=== PATIENT | male | born 1955 | race Caucasian/White ===

== ENCOUNTER 2017-12-07 08:10 | Observation (INO) | payer BC, OTHER ==
[2017-12-07] VITALS (8 sets, daily range): BP systolic 119–148; BP diastolic 62–82; PULSE 49–71; RESP 16–18; TEMP 97.7–98.6; O2SAT 96–100
[~2017-12-07] VITALS: Ht 170.2 cm; Wt 85.3 kg
[~2017-12-07 08:10] MED LIST: Z.0.NO CURRENT MEDS
--- NOTE | 2017-12-07 08:36 | PD ---
HPI Chief Complaint: Chest Pain Time Seen by Provider: 08:36 Travel History International Travel<30 days: No Contact w/Intl Traveler<30days: No Traveled to known affect area: No History of Present Illness HPI 62-year-old male came to the emergency room with history of chest pain and shortness of breath for past 1 month. Patient says that the pain comes and goes. He is here today because of shortness of breath is worse. Pain is in the center of the chest and is like a dull ache. Currently does not have any pain. No aggravating or relieving factors identified. No radiation of the pain. Vital signs were stable. Patient is a smoker of half a pack a day. He drinks a few beers throughout the week. No history of coronary artery disease in the past or in the family. Patient has never had a stress test in the past. He saw his primary care physician 9 months back. He was told that his cholesterol level was slightly high but he is not on any medications. [facility] Past Medical History Narrative Medical List of his past medical, surgical, social and family history is reviewed from the nursing note. GERD: Yes Kidney Stones: Yes (YEARLY SINCE 2003 (3 YEARS).) Immunizations Current: No Influenza Vaccination: No Past Surgical History Oral Surgery: Yes (BOTTOM TEETH PULLED OUT DUE TO INFECTION 2017) Tonsillectomy: Yes Social History Alcohol Use: Yes (2 BEERS DAILY) Tobacco Use: Yes (1/2 PPD) Substance Use: No (denies) Allergies-Medications (Allergen,Severity, Reaction): Coded Allergies: No Known Allergies (Verified Allergy, Mild, 07/10/07) Comments No known drug allergies. Reported Meds & Prescriptions Reported Meds & Active Scripts Active Narrative Medication List of his home medications reviewed from the nursing note. Review of Systems Except as stated in HPI: all other systems reviewed are Neg Cardiovascular: Positive: Chest Pain or Discomfort Respiratory: Positive: Shortness of Breath Physical Exam Narrative GENERAL: Awake, alert, anxious, no obvious distress SKIN: Focused skin assessment warm/dry. HEAD: Atraumatic. Normocephalic. EYES: Pupils equal and round. No scleral icterus. No injection or drainage. ENT: No nasal bleeding or discharge. Mucous membranes pink and moist. NECK: Trachea midline. No JVD. CARDIOVASCULAR: Regular rate and rhythm. No murmur appreciated. RESPIRATORY: No accessory muscle use. Clear to auscultation. Breath sounds equal bilaterally. GASTROINTESTINAL: Abdomen soft, non-tender, nondistended. Hepatic and splenic margins not palpable. MUSCULOSKELETAL: No obvious deformities. No clubbing. No cyanosis. No edema. NEUROLOGICAL: Awake and alert. No obvious cranial nerve deficits. Motor grossly within normal limits. Normal speech. PSYCHIATRIC: Appropriate mood and affect; insight and judgment normal. Data Data Last Documented VS Vital Signs Date Time Temp Pulse Resp B/P (MAP) Pulse Ox O2 Delivery O2 Flow Rate FiO2 12/07/17 09:16 51 18 148/75 (99) 96 Room Air 138/82 (100) 12/07/17 08:28 97.9 Orders Orders Electrocardiogram (12/07/17 08:49) Basic Metabolic Panel (Bmp) (12/07/17 08:49) Complete Blood Count With Diff (12/07/17 08:49) Magnesium (Mg) (12/07/17 08:49) Prothrombin Time / Inr (Pt) (12/07/17 08:49) Troponin I (12/07/17 08:49) Ecg Monitoring (12/07/17 08:49) Bilateral Bp Monitoring (12/07/17 08:49) Iv Access Insert/Monitor (12/07/17 08:49) Oximetry (12/07/17 08:49) Oxygen Administration (12/07/17 08:49) Aspirin Chew (Aspirin Chew) (12/07/17 09:00) Sodium Chloride 0.9% Flush (Ns Flush) (12/07/17 09:00) Chest, Pa & Lat (12/07/17 08:49) Admit Order (Ed Use Only) (12/07/17 09:50) Labs Laboratory Tests Test 12/07/17 08:56 White Blood Count 5.4 TH/MM3 Red Blood Count 5.05 MIL/MM3 Hemoglobin 16.7 GM/DL Hematocrit 48.7 % Mean Corpuscular Volume 96.4 FL Mean Corpuscular Hemoglobin 33.1 PG Mean Corpuscular Hemoglobin Concent 34.3 % Red Cell Distribution Width 14.0 % Platelet Count 131 TH/MM3 Mean Platelet Volume 9.0 FL Neutrophils (%) (Auto) 64.4 % Lymphocytes (%) (Auto) 24.9 % Monocytes (%) (Auto) 7.5 % Eosinophils (%) (Auto) 2.4 % Basophils (%) (Auto) 0.8 % Neutrophils # (Auto) 3.5 TH/MM3 Lymphocytes # (Auto) 1.4 TH/MM3 Monocytes # (Auto) 0.4 TH/MM3 Eosinophils # (Auto) 0.1 TH/MM3 Basophils # (Auto) 0.0 TH/MM3 CBC Comment DIFF FINAL Differential Comment Prothrombin Time 9.9 SEC Prothromb Time International Ratio 1.0 RATIO Blood Urea Nitrogen 9 MG/DL Creatinine 1.09 MG/DL Random Glucose 94 MG/DL Calcium Level 9.1 MG/DL Magnesium Level 2.1 MG/DL Sodium Level 138 MEQ/L Potassium Level 3.8 MEQ/L Chloride Level 105 MEQ/L Carbon Dioxide Level 28.1 MEQ/L Anion Gap 5 MEQ/L Estimat Glomerular Filtration Rate 69 ML/MIN Troponin I LESS THAN 0.02 NG/ML MDM Medical Decision Making Medical Screen Exam Complete: Yes Emergency Medical Condition: Yes Medical Record Reviewed: Yes Interpretation(s) Twelve-lead EKG was reviewed by me. Normal sinus rhythm, normal axis, nonspecific ST-T wave changes. Heart rate of 66 bpm. Differential Diagnosis ACS, non-STEMI, nonspecific chest pain Narrative Course 9:07 AM awaiting for the blood test results. Patient was given 2 baby aspirin' s to chew. 9:51 AM blood test results of back and within acceptable limits. Patient will be admitted to the chest pain center to be ruled out. Procedures EKG Prior to Arrival: No Diagnosis Primary Impression: Chest pain Qualified Codes: R07.9 - Chest pain, unspecified Admitting Information Admitting Physician Requests: Observation Scripts Aspirin (Tgt Aspirin) 81 Mg Chw 81 MG CHEW DAILY for Blood Clot Prevention, #30 EA Prov: Fariba Persaud MD 12/08/17 Bijal Mcadams MD Dec 07, 2017 08:36
[2017-12-07] MEDS ORDERED: ASPIRIN 81 MG CHEW TAB PO ONE (09:00)
[2017-12-07] MEDS ORDERED: SODIUM CHLORIDE 0.9% FLUSH 10 ML FLUSH IVF PRN (09:00)
[2017-12-07 09:20] LABS: HEMATOCRIT 48.7 % (39.0-51.0); HEMOGLOBIN 16.7 GM/DL (13.0-17.0); MEAN CELL VOLUME 96.4 FL (80.0-100.0); MEAN CORPUSCULAR HEMOGLOBIN 33.1 PG (27.0-34.0); MEAN CORPUSCULAR HGB CONC 34.3 % (32.0-36.0); PLATELET COUNT 131 TH/MM3 (150-450); RED BLOOD COUNT 5.05 MIL/MM3 (4.50-5.90); WHITE BLOOD COUNT 5.4 TH/MM3 (4.0-11.0)
[2017-12-07 09:21] LABS: AUTOMATED NEUTROPHIL # 3.5 TH/MM3 (1.8-7.7); BASOPHIL % 0.8 % (0.0-2.0); EOSINOPHIL # 0.1 TH/MM3 (0-0.4); EOSINOPHIL % 2.4 % (0.0-4.0); LYMPH % 24.9 % (9.0-44.0); LYMPHOCYTE # 1.4 TH/MM3 (1.0-4.8); MONO % 7.5 % (0.0-8.0); MONOCYTE # 0.4 TH/MM3 (0-0.9); NEUT % 64.4 % (16.0-70.0)
[2017-12-07 09:31] LABS: PROTHROMBIN TIME - PATIENT 9.9 SEC (9.8-11.6)
--- NOTE | 2017-12-07 09:38 | RADRPT ---
EXAM DATE/TIME: 12/07/2017 09:11 [facility] COMPARISON: No previous studies available for comparison. INDICATIONS : Chest pain for 28 days, short of breath MEDICAL HISTORY : smoker SURGICAL HISTORY : shoulder, knees ENCOUNTER: Initial ACUITY: 1 month PAIN SCORE: 8/10 LOCATION: Bilateral chest FINDINGS: PA and lateral views of the chest demonstrate a normal-sized cardiac silhouette. There is no effusion , consolidation, or pneumothorax. The bones and soft tissues demonstrate no acute abnormality. CONCLUSION: No acute cardiopulmonary abnormality is identified. Adam Kay MD on December 07, 2017 at 9:36 Board Certified Radiologist. This report was verified electronically.
[2017-12-07 09:39] LABS: BICARBONATE 28.1 MEQ/L (21.0-32.0); BLOOD UREA NITROGEN 9 MG/DL (7-18); CALCIUM 9.1 MG/DL (8.5-10.1); CHLORIDE 105 MEQ/L (98-107); CREATININE 1.09 MG/DL (0.60-1.30); GLOMERULAR FILTRATION RATE 69 ML/MIN (>89); GLUCOSE,RANDOM 94 MG/DL (74-106); MAGNESIUM 2.1 MG/DL (1.5-2.5); SODIUM (NA) 138 MEQ/L (136-145)
[2017-12-07 09:43] LABS: TROPONIN I LESS THAN 0.02 NG/ML (0.02-0.05)
[2017-12-07] MEDS ORDERED: IOHEXOL 350 MG/ML 50 ML BTL (for Cath Lab) OTHER ONE (09:52)
[2017-12-07] MEDS ORDERED: ACETAMINOPHEN 500 MG CPLT PO PRN (10:00)
[2017-12-07] MEDS ORDERED: NITROGLYCERIN 0.4 MG SL 25 TABS/BTL SL PRN (10:00)
[2017-12-07] MEDS ORDERED: ONDANSETRON HCL 4 MG/2 ML VIAL IV PUSH PRN (10:00)
--- NOTE | 2017-12-07 10:10 | HHI.HP ---
[facility] Primary Care Physician Dr. Still Chief Complaint Chest pain and dyspnea History of Present Illness 62-year-old male long-standing history of smoking presents to emergency room for further evaluation of chest pain and dyspnea. Onset 30 days. Reports month long symptoms including sore throat, productive cough white sputum, poor appetite, and lungs feel "tight." Denies fever, chills, or awakening from sleep dyspneic. Endorses dyspnea progressively becoming worse, with accompanying intermittent chest pain. Stating "I feel like I have an infection in my lungs." Location of chest discomfort substernal. Characterized as "ache. " Severity moderate. No radiation. Duration 30-45 seconds. No associated symptoms of nausea, vomiting, diaphoresis. No known precipitating or relieving factors. Also reporting 33 pound weight loss past 30 days. Denies notifying primary care provider of weight loss, chest pain, recent illness, or dyspnea. Review of Systems General: No fatigue,weakness, fever, or chills. Decrease change in appetite, nasal congestion, and sore throat x 30 days. HEENT: Current nasal congestion and sore throat x 30 days, no drainage.No YANG, no vision changes, no dysphasia CV: As stated above. No current chest discomfort. RESP: Dyspnea not necessary always with exertional. Current productive cough, white sputum. No current dyspnea. No wheeze or hemoptysis. No known history of COPD or asthma. GI: No nausea, vomiting, or bowel changes. Poor appetite x 30 days, reports unintentional weight loss of #33 pounds past 30 days due to lack of appetite. : No dysuria, urgency, frequency EXT: No lower leg edema, no paraesthesias MS: No discomfort or change in ROM NEURO: No difficulty with balance, LOC, motor/sensory deficits PSYCH: No anxiety, depression SKIN: No rashes, no concerning lesions Past Family Social History Allergies: Coded Allergies: No Known Allergies (Verified Allergy, Mild, 07/10/07) Past Medical History None Past Surgical History Tonsillectomy, lower teeth extracted (2017) Reported Medications Reported Meds & Active Scripts Active None Active Ordered Medications Current Medications Medications (Trade) Dose Ordered Sig/Antonio Route Start Time Stop Time Status Last Admin (NS Flush) 2 ml UNSCH PRN IVF 12/07/17 09:00 (Tylenol) 500 mg Q4H PRN PO 12/07/17 10:00 (Zofran Inj) 4 mg Q6H PRN IV PUSH 12/07/17 10:00 (Nitrostat Sl) 0.4 mg Q5M PRN SL 12/07/17 10:00 (Aspirin) 325 mg DAILY PO 12/08/17 09:00 Family History Noncontributory for early onset cardiovascular disease. Social History No known hypertension, hyperlipidemia, or diabetes. Recently told cholesterol slightly elevated, lifestyle modifications at this time. Lifelong smoker, currently one half pack daily. Endorses "few beers, every other day." Denies any illegal drug use. Past Cardiac testing None Physical Exam Vital Signs Vital Signs Date Time Temp Pulse Resp B/P (MAP) Pulse Ox O2 Delivery O2 Flow Rate FiO2 12/07/17 09:16 51 18 148/75 (99) 96 Room Air 138/82 (100) 12/07/17 08:52 18 98 Room Air 12/07/17 08:52 98 Room Air 12/07/17 08:30 71 18 98 Room Air 12/07/17 08:28 97.9 71 18 141/79 (99) 98 Room Air 12/07/17 08:19 98.0 71 16 141/79 (99) 100 Physical Exam GENERAL: Alert WN, WD, NAD, pleasant, male who appears older than stated age, does not appear ill or underweight. HEAD: NC, AT CV: RRR, without murmur, rub, gallop, no JVD, S1-S2 no S3-S4. RESP: Clear lungs throughout bilateral, no crackles, wheeze, rhonchi, symmetrical chest rise, nonlabored, able to speak in full sentences ABD: Soft, NT, ND, no masses, positive bowel tones EXT: Pulses +24, no dependent edema MS: Normal tone 4 extremities, nontender, no obvious deformities, full range of motion NEURO: CN II through CN XII grossly intact, motor strength 5/5 PSYCH: A+O 3, pleasant affect, appropriate speech, mood, insight and judgment SKIN: Normal turgor, normal texture Laboratory Laboratory Tests Test 12/07/17 08:56 White Blood Count 5.4 Red Blood Count 5.05 Hemoglobin 16.7 Hematocrit 48.7 Mean Corpuscular Volume 96.4 Mean Corpuscular Hemoglobin 33.1 Mean Corpuscular Hemoglobin Concent 34.3 Red Cell Distribution Width 14.0 Platelet Count 131 Mean Platelet Volume 9.0 Neutrophils (%) (Auto) 64.4 Lymphocytes (%) (Auto) 24.9 Monocytes (%) (Auto) 7.5 Eosinophils (%) (Auto) 2.4 Basophils (%) (Auto) 0.8 Neutrophils # (Auto) 3.5 Lymphocytes # (Auto) 1.4 Monocytes # (Auto) 0.4 Eosinophils # (Auto) 0.1 Basophils # (Auto) 0.0 CBC Comment DIFF FINAL Differential Comment Prothrombin Time 9.9 Prothromb Time International Ratio 1.0 Blood Urea Nitrogen 9 Creatinine 1.09 Random Glucose 94 Calcium Level 9.1 Magnesium Level 2.1 Sodium Level 138 Potassium Level 3.8 Chloride Level 105 Carbon Dioxide Level 28.1 Anion Gap 5 Estimat Glomerular Filtration Rate 69 Troponin I LESS THAN 0.02 Result Diagram: 12/07/17 0856 12/07/17 0856 Imaging Chest x-ray interpreted by radiologist as No acute cardiopulmonary process identified. Course EKG Normal sinus rhythm, normal axis, no ST or T-segment changes Caprini VTE Risk Assessment Caprini VTE Risk Assessment: No/Low Risk (score <= 1) Caprini Risk Assessment Model Point Value = 1 Point Value = 2 Point Value = 3 Point Value = 5 Age 41-60 Minor surgery BMI > 25 kg/m2 Swollen legs Varicose veins or History of unexplained or recurrent spontaneous Oral contraceptives or hormone replacement Sepsis (< 1 month) Serious lung disease, including pneumonia (< 1 month) Abnormal pulmonary function Acute myocardial infarction Congestive heart failure (< 1 month) History of inflammatory bowel disease Medical patient at bed rest Age 61-74 Arthroscopic surgery Major open surgery (> 45 min) Laparoscopic surgery (> 45 min) Malignancy Confined to bed (> 72 hours) Immobilizing plaster cast Central venous access Age >= 75 History of VTE Family history of VTE Factor V Leiden Prothrombin [id number] Lupus anticoagulant Anticardiolipin antibodies Elevated serum homocysteine Heparin-induced thrombocytopenia Other congenital or acquired thrombophilia Stroke (< 1 month) Elective arthroplasty Hip, pelvis, or leg fracture Acute spinal cord injury (< 1 month) Prophylaxis Regimen Total Risk Factor Score Risk Level Prophylaxis Regimen 0-1 Low Early ambulation 2 Moderate Order ONE of the following: *Sequential Compression Device (SCD) *Heparin 5000 units SQ BID 3-4 Higher Order ONE of the following medications: *Heparin 5000 units SQ TID *Enoxaparin/Lovenox 40 mg SQ daily (WT < 150 kg, CrCl > 30 mL/min) *Enoxaparin/Lovenox 30 mg SQ daily (WT < 150 kg, CrCl > 10-29 mL/min) *Enoxaparin/Lovenox 30 mg SQ BID (WT < 150 kg, CrCl > 30 mL/min) AND/OR *Sequential Compression Device (SCD) 5 or more Highest Order ONE of the following medications: *Heparin 5000 units SQ TID (Preferred with Epidurals) *Enoxaparin/Lovenox 40 mg SQ daily (WT < 150 kg, CrCl > 30 mL/min) *Enoxaparin/Lovenox 30 mg SQ daily (WT < 150 kg, CrCl > 10-29 mL/min) *Enoxaparin/Lovenox 30 mg SQ BID (WT < 150 kg, CrCl > 30 mL/min) AND *Sequential Compression Device (SCD) Assessment and Plan Assessment and Plan #1 Atypical chest pain-admitted chest pain center. Begin ruling out ACS with 3 sets of EKGs and cardiac enzymes. Seen and evaluated by Dr. Chaparro Andujar. Proceed with chemical stress test after CT of chest. If unremarkable, plans to discharge home with follow-up with PCP. #2 Tobacco use-strongly encouraged and stressed the importance of tobacco cessation. Instructed to quit smoking. #3 Dyspnea-no acute findings on exam or chest xray. Obtain CT of chest due to reported 30 pound weight loss and long-standing history of smoking. Strongly encouraged him to quit smoking and to follow up with his PCP regarding weight lost. Verbalized understanding. Socorro Mcclure Dec 07, 2017 10:10
[2017-12-07] MEDS ORDERED: IOHEXOL 350 MG/ML 10 ML VIAL (for RAD DIAG) IVCONTRAST ONE (10:44)
--- NOTE | 2017-12-07 11:17 | RADRPT ---
EXAM DATE/TIME: 12/07/2017 10:39 [facility] COMPARISON: CHEST PA & LAT, December 07, 2017, 9:11. INDICATIONS : Chest pain, shortness of breath. IV CONTRAST: 74 cc Omnipaque 350 (iohexol) IV RADIATION DOSE: 9.90 CTDIvol (mGy) MEDICAL HISTORY : Gastroesophageal reflux disease. SURGICAL HISTORY : Tonsillectomy. ENCOUNTER: Initial ACUITY: 2 days PAIN SCALE: 5/10 LOCATION: Bilateral chest TECHNIQUE: Volumetric scanning of the chest was performed using a pulmonary embolism protocol MIP images were re constructed. Using automated exposure control and adjustment of the mA and/or kV according to patien t size, radiation dose was kept as low as reasonably achievable to obtain optimal diagnostic quality images. DICOM format image data is available electronically for review and comparison. Follow-up recommendations for detected pulmonary nodules are based at a minimum on nodule size and pa tient risk factors according to Fleischner Society Guidelines. FINDINGS: PULMONARY ARTERIES: No filling defects are seen in the pulmonary arteries through the segmental level. LUNGS: There is no consolidation or pneumothorax . No concerning pulmonary nodule is visualized. There is m ild dependent atelectasis. PLEURAE: There is no pleural thickening or pleural effusion. MEDIASTINUM: The heart and great vessels demonstrate no acute finding. However, the ascending aorta is mildly enla rged measuring 4.1 cm in diameter. Descending thoracic aorta measures 3 cm. There is mild atheroscler otic disease of the aorta. No lymphadenopathy is visualized. MUSCULOSKELETAL: There are mild degenerative changes of the thoracic spine. MISCELLANEOUS: The visualized upper abdominal organs demonstrate no acute abnormality. CONCLUSION: 1. No PE is identified. Additionally, no acute finding is identified to explain the chest pain and sh ortness of breath. 2. Mild aneurysmal ascending aorta measuring 4.1 cm. Adam Kay MD on December 07, 2017 at 11:12 Board Certified Radiologist. This report was verified electronically.
[2017-12-07] MEDS ORDERED: REGADENOSON INJ 0.4 MG/5 ML SYR ONE (12:38)
--- NOTE | 2017-12-07 14:37 | RADRPT ---
EXAM DATE/TIME: 12/07/2017 12:27 [facility] COMPARISON: No previous studies available for comparison. INDICATIONS : Chest pain and dyspnea for 1 month. Angina. DOSE: 26.4 mCi Tc99m Myoview at stress. 8.3 mCi Tc99m Myoview at rest. 0.4 mg Lexiscan STRESS SYMPTOMS: Shortness of breath. EJECTION FRACTION: 69% MEDICAL HISTORY : Smoker. SURGICAL HISTORY : Tonsillectomy. ENCOUNTER: Sequela ACUITY: 1 month PAIN SCALE: 0/10 LOCATION: Substernal chest TECHNIQUE: The patient underwent pharmacologic stress with infusion of prescribed dose. Continuous ECG tracing was monitored during stress. Gated SPECT imaging was performed after stress and conventional SPECT i maging was performed at rest. The examination was performed on a SPECT/CT scanner, both attenuation and non-corrected datasets were reviewed. FINDINGS: DISTRIBUTION: The maximum perfused segment at stress is in the anterolateral wall. PERFUSION STUDY: The pattern of perfusion at stress shows areas of 20% redistribution in the region of the septal and anteroseptal matthews. GATED STUDY: There is intact wall motion and thickening without hypokinetic or dyskinetic segments. CONCLUSION: 1. Significant but patchy redistribution in the region of the septal wall. Findings could be indicati ve of RCA disease. 2. Excellent wall motion throughout with an estimated ejection fraction of 69%. RISK CATEGORY: Intermediate (1-3% Annual Mortality Rate) Yariel Bradley MD on December 07, 2017 at 14:32 Board Certified Radiologist. This report was verified electronically.
[2017-12-07 15:30] LABS: TROPONIN I LESS THAN 0.02 NG/ML (0.02-0.05)
[2017-12-07] MEDS ORDERED: HEPARIN-NS/PF FLUSH BAG 2,000 ML IV FLUSH ONE (16:35)
[2017-12-07] MEDS ORDERED: MIDAZOLAM HCL 2 MG/2 ML VIAL ONE (16:38)
[2017-12-07] MEDS ORDERED: VERAPAMIL HCL 5 MG/2 ML VIAL ONE (16:38)
[2017-12-07] MEDS ORDERED: NITROGLYCERIN INJ 5 ML ONE (16:38)
[2017-12-07] MEDS ORDERED: HEPARIN SODIUM - IV 10,000 UNITS/10 ML VIAL ONE (16:38)
--- NOTE | 2017-12-07 16:40 | TR ---
Date Performed: 12/07/2017 Time Performed: 12:45:22 DOCTOR: Chaparro Andujar DRUG LIST: CLINICAL HISTORY: ANGINA REASON FOR TEST: Angina REASON FOR ENDING: OBSERVATION: CONCLUSION: COMMENTS: Lexiscan stress test was performed under standard four minute protocol. Radionuclide was injected one minute prior to ending the test. No electrocardiographic abormalities were present t o suggest ischemia. Nuclear imaging and interpretation are pending.
[2017-12-07] MEDS ORDERED: SODIUM CHLOR 0.9% 1000 ML INJ 1,000 ML IV SCH (17:16)
--- NOTE | 2017-12-07 17:18 | CATHPROC ---
[employer] HIS Report Study Information Study Number Admission Scheduled Start Study Start [id number] Dec 07 2017 9:51AM 12/07/2017 Dec 07 2017 4:36PM [facility] Service Cardiac Catheterization Admit Source Facility Department Emergency department [facility] - Analytical Data [employer]er Physician and Clinical Staff Initial MD More, Eros Barrel Polisher Inside Mihai Saul,LELO Other Hipolito RN, Haroon Bolañoser Aneesh Light,RT(R) Scrub Tamara Gutierres,OUTSOLE LEVELER TECH2 Procedures Performed Procedure Location (Site) Vessel Name Coronary Angiograms LCA Left Coronary L Heart Cath Equipment Time Lathe Set Up Person Description Size Mfg Part Number Used/Scraped TRANSDUCER, TRUWAVE [id number] 16:43 MANCIA SARAH * Used W/STOCKCOCK *[id number] [id number] *[id number] [id number] *[id number] 16:43 [employer] PACK, CCL CUSTOM * Used *[id number] 16:43 [employer] SUPPORT, ARTERIAL ADULT 59010 *[id number] Used BAND, RADIAL COMPRESSION TR [id number] 17:09 [employer] MEDICAL 29CM Used LARGE 29 *[id number] 16:43 VOSS WIRE, EXCHANGE 260CM 3MMJ 260CM Used *[id number] 16:43 NAMIC MANIFOLD, 4 PORT * Used *[id number] 16:43 [employer] OMNIPAQUE, 350 MG, 150ML 150ML [id number] Used [id number] 16:43 [employer] BLANKET,WARM AIR CCL * Used *[id number] SHEATH, FR6 TRANSRADIAL RM*[id number] 16:43 [employer] MEDICAL FR 6 Used SLENDER 10CM *[id number] History: Current Medications Medication Dosage/Unit Route Frequency Last Date/Time Taken ASA History: Allergies Allergy Reaction No Known Allergies History: Risk Factors Family History of Hypertension Dyslipidemia Previous [place] Previous Heart Failure Premature CAD Yes Yes No No No Prior Valve Prior PCI Prior CABG Surgery No No No Cerebrovascular Peripheral Artery Chronic Lung On Dialysis Diabetes Disease Disease Disease No No No No No History: Risk Factors Selection Items Current Smoker History: Stress Tests Stress or Imaging Studies Performed Yes Standard Exercise Stress Test No Stress Echo No Stress Test SPECT Stress Test SPECT Result Stress Test SPECT Ischemia Risk/Extent Yes Positive Intermediate Stress Test CMR No Cardiac CTA Coronary Calcium Score No No History: Other Disease Selection Items HTN History: Other Current Smoker Method Packs a Day Years Used Pack Years Yes Cigarettes 1 45 45 Labs Hgb (g/dl) Hct (%) RBC (MIL/MM3) WBC (l/cumm) Platelets (thousands) 11.60-17.00 35.00-51.00 4.00-5.90 4.00-11.00 150.00-450.00 16.7 48.7 5 5.4 131 Glucose (mg/dl) BUN (mg/dl) Creatinine (mg/dl) BUN:Creatinine (1:x) 74.00-106.00 7.00-18.00 0.50-1.30 10.00-20.00 94 9 1.0 9 Na (meq/l) K (meq/l) Cl (meq/l) CO2 (mmol/L) Ca (mg/dl) 136.00-145.00 3.50-5.10 98.00-107.00 21.00-32.00 8.50-10.10 138 3.8 105 28.1 9.1 PT (sec) INR (PTT:PT) 9.80-11.60 0.90-1.10 9.9 1 Troponin I (ng/ml) CPK (u/l) CPK-MB (ng/ML) 0.02-0.05 26.00-308.00 0.50-3.60 0.02 112 1.0 Medication Medication Total Dose (Bolus/Oral) Medication Total Dosage/Unit 1% XYLOCAINE 5 mL FENTANYL 25 mcg RADIAL COCKTAIL 5 mL (Bolus) VERSED 0.5 mg Medications (Bolus/Oral) Medication Time Given Dosage/Unit Administered By Reason 1% XYLOCAINE 12/07/2017 4:55:28 PM 5 mL Eros More 5 mL 1% XYLOCAINE given in lab by Eros More in Right Radial via Subcutaneous. VERSED 12/07/2017 4:56:19 PM 0.5 mg Mihai Saul 0.5 mg VERSED given in lab by Mihai Saul RN in Right Antecubital via Peripheral IV. FENTANYL 12/07/2017 4:56:27 PM 25 mcg Mihai Saul 25 mcg FENTANYL given in lab by Mihai Saul RN in Right Antecubital via Peripheral IV. Ntg 200mcg Verapamil 2.5mg Heparin RADIAL COCKTAIL 12/07/2017 4:59:02 PM 5 mL (Bolus) Eros More 2000U 5 mL (Bolus) RADIAL COCKTAIL given in lab by Eros More via Radial. Using [Solution Name]. O rdered by Eros More. Reason: Ntg 200mcg Verapamil 2.5mg Heparin 3600U. Medication (Drip) Medication Time Given Dosage/Unit Concentration/Unit Diluent (ml) Solutio n IV Solutions 12/07/2017 4:36:31 PM 0 mL (IV) 500 NaCl .9 IV Solutions given in lab by Mihai Saul, RN in Right Antecubital via Peripheral IV. Pump/Drip Flow = 30 ml/hr using NaCl .9. Initial Case Assessment Cardiovascular HR Rhythm NIBP Chest Pain 51 sb 172/79 0 Edema Present Skin color Skin None Normal Warm Dry Circulatory - Right Pulses Dorsalis Pedis Femoral Radial 2 2 2 Scale (0,1,2,3,4,d) Scale (0,1,2,3,4,d) Circulatory - Lower Extremities Color Lower Right Color Lower Left Normal Normal Neurological State Oriented to time-place- Alert Moves all extremities person Respiration - General Respiration Rate SpO2 (%) (B/min) 8 99 Final Case Assessment Cardiovascular HR Rhythm NIBP Chest Pain 48 Sinus 155/73 0 Edema Present Skin color Skin None Normal Warm Dry Circulatory - Right Pulses Dorsalis Pedis Femoral Radial 2 2 2 Scale (0,1,2,3,4,d) Scale (0,1,2,3,4,d) Neurological State Oriented to time-place- Alert Moves all extremities person Respiration - General Respiration Rate SpO2 (%) O2 (lpm) (B/min) 8 97 0 Chronological Log Time Study Chronological Log 16:30:01 Patient arrived via Bed. 16:30:04 Patient Name, D.O.B, / Armband Verified By R.N. 16:36:07 Consent signed by the physician and the patient and verified by the [employer] staff. 16:36:07 Pre-op and post- op instructions given; patient acknowledges understanding of instructions. 16:36:08 Verbal Stimulation=2 Physical Stimulation=2 Airway=2 Respiration=2 TOTAL=8. (0=absent, 1=li mited, 2=present) 16:36:10 Presedation assessment performed by Analytical Data Miner RN. 16:36:12 Allens test performed on the right radial and ulnar artery. 16:36:20 Patient has been NPO for More than 6Hrs. 16:36:21 Skin Breakdown none per pt 16:36:23 Patient Warmer Placed on the Table. 16:36:25 Kandi Prominences Protected 16:36:31 A # 20 IV was noted in the Antecubital (right). Grade = 0 IV Solutions given in lab by Mihai Saul RN in Right Antecubital via Peripheral IV. Pump/Dri p Flow = 30 ml/hr using 16:36:31 NaCl .9. 16:36:32 History and physical on the chart or being dictated. Assessment: Initial Case, HR=51 BPM, Rhythm=sb, MJFO=309/79 mmhg, Chest Pain=0, Edema=None, Col or=Normal, Skin = Warm, Dry Right Pulses: Armani Ped=2, Femoral=2, Radial=2 16:36:33 Lower Right Extremities: Color=Normal Lower Left Extremities: Color=Normal Neurological: State=Alert, Ox3, DACOSTA Respiration: Resp=8 B/min, SpO2=99 % Vitals capture started with the following parameters, Patient=Adult, Interval=5 min, Initial Pr aasfse=560 mmHg, 16:41:31 Deflation Rate=5 mmHg, Cuff placed on Left Arm 16:41:56 Right Radial and groin(s) prepped with 2% chlorhexidine, and draped after a 3 min. waiting time. 16:43:00 HR=47 bpm, RKWY=779/79 mmhg, SpO2=98.0 %, Resp=21 B/min, Pain=0, Pérez=10, Weiss=2 16:45:57 Pressure channel 1 zeroed. 16:47:14 HR=58 bpm, FDOK=942/78 mmhg, SpO2=96.0 %, Resp=21 B/min, Pain=0, Pérez=10, Weiss=2 16:50:01 MD arrived. 16:52:11 HR=52 bpm, MNXJ=619/77 mmhg, SpO2=96.0 %, Resp=24 B/min, Pain=0, Pérez=10, Weiss=2 16:53:02 Reference ECG taken Time Out. Correct patient, correct procedure, correct physician, power injector not loaded with contrast with surgical 16:55:13 team present. Time Out Concurred by and individual staff in procedure. 16:55:21 Case Start 16:55:28 5 mL 1% XYLOCAINE given in lab by Eros More in Right Radial via Subcutaneous. 16:56:19 0.5 mg VERSED given in lab by Mihai Saul, RN in Right Antecubital via Peripheral IV. 16:56:27 25 mcg FENTANYL given in lab by Mihai Saul RN in Right Antecubital via Peripheral IV. 16:57:51 HR=53 bpm, UHVJ=848/77 mmhg, SpO2=98.0 %, Resp=14 B/min, Pain=0, Pérez=10, Weiss=2 16:58:40 Access site was Radial Artery. A SHEATH, FR6 TRANSRADIAL SLENDER 10CM FR 6 was advanced into the Radial (right) using the Perc utaneous 16:58:47 technique. 5 mL (Bolus) RADIAL COCKTAIL given in lab by Eros More via Radial. Using [Solution Na me]. Ordered by 16:59:02 Eros More. Reason: Ntg 200mcg Verapamil 2.5mg Heparin 3600U. A JR 4.0 INFINITI CATHETER FR 5 was advanced over a wire. OMNIPAQUE, 350 MG, 150ML 150ML was ed for 16:59:58 injections. Recorded Pressure: LV, HR=60, Condition=Condition 1 17:01:11 (Left Ventricle) LV 127/3/10 Recorded Pressure: LV, Ao, HR=59, Condition=Condition 1 17:01:24 (Left Ventricle) LV 106/0/6, (Aorta) Ao 120/62/85 Recorded Pressure: LV, Ao, HR=56, Condition=Condition 1 17:01:28 (Left Ventricle) LV ?/?/?, (Aorta) Ao 119/59/83 Recorded Pressure: Ao, HR=57, Condition=Condition 1 17:01:36 (Aorta) Ao 119/54/83 17:02:11 HR=62 bpm, HENG=810/68 mmhg, SpO2=92.0 %, Resp=15 B/min, Pain=0, Pérez=10, Weiss=2 A JL 3.5 INFINITI CATHETER FR 5 was advanced over a wire. OMNIPAQUE, 350 MG, 150ML 150ML was u sed for 17:03:24 injections. 17:04:59 The LCA was injected and visualized at various angles. OMNIPAQUE, 350 MG, 150ML 150ML use d. 17:06:42 Catheter was removed 17:07:03 Case End 17:07:51 HR=52 bpm, MRFN=125/73 mmhg, SpO2=92.0 %, Resp=7 B/min, Pain=0, Pérez=10, Weiss=2 Assessment: Final Case, HR=48 BPM, Rhythm=Sinus, MFZQ=105/73 mmhg, Chest Pain=0, Edema=None, Color=Normal, Skin = Warm, Dry 17:09:14 Right Pulses: Armani Ped=2, Femoral=2, Radial=2 Neurological: State=Alert, Ox3, DACOSTA Respiration: Resp=8 B/min, SpO2=97 %, O2=0 lpm Radial Compression Device Used. 13 mLs of air placed in BAND, RADIAL COMPRESSION TR LARGE 29 2 9CM. Affected 17:12:31 hand ~O2 SATURATION~ % O2 saturation. 17:12:48 HR=51 bpm, KAHG=293/72 mmhg, SpO2=95.0 %, Resp=12 B/min, Pain=0, Pérez=10, Weiss=2 17:12:54 No case complications noted. 17:12:55 Cine recording checked. 17:13:00 Vitals capture stopped. 17:13:02 Bedside Report will be given. 17:13:30 A Left Heart Cath was performed. 17:17:25 Patient moved to [facility] End Study - Contrast Media Used In Study Contrast Total Opened (mL) Total Used (mL) Total Wasted (mL) Omnipaque 150 25 125 End Study - Maximum Contrast Load Max Contrast Load (mL) 450.0 End Study - Radiation Exposure Fluoro Time (minutes) 1.9 End Study - Patient Disposition Complications Transferred To Interventional Outcome No Telemetry Bed No attempt made
[2017-12-07] MEDS ORDERED: MISC INFORMATION XX ONE (17:30)
[2017-12-08] VITALS: BP 152/81; PULSE 57; RESP 16; TEMP 98.1; O2SAT 97
--- NOTE | 2017-12-08 01:41 | MA ---
cc: Eros More DO 12/07/2017 PROCEDURE: Left heart catheterization, coronary angiogram, moderate sedation 15 minutes. PREPROCEDURE DIAGNOSES: Chest pain, abnormal stress test. POSTPROCEDURE DIAGNOSIS: Mild coronary artery disease. MEDICATIONS: Versed 0.5 mg, Fentanyl 25 mcg, heparin 3600 units, ____ 3.5 mg, nitroglycerin 200 mcg. CONTRAST USED: 25 mL. FLUOROSCOPY: 1.9 minutes. MODERATE SEDATION: 15 minutes. ESTIMATED BLOOD LOSS: 10 mL. PROCEDURAL SUMMARY: Maureen Grant is a pleasant 62-year-old male who presented to [facility] on 12/07/2017 due to chest pain and shortness of breath. He underwent stress testing and as this was found to be abnormal he was recommended cardiac catheterization. Risks, benefits and alternatives were explained to him and he consented as such. He was brought to the lab and prepped in the usual sterile fashion. Right radial artery was accessed using a modified Seldinger technique and placing a #5/6 Greenlandic Slender sheath. This was easily aspirated and flushed. A JR4 was advanced over a J wire to the ascending aorta and across the aortic valve for measurement of left ventricular pressure. This was pulled back across the aortic valve showing no significant gradient of aortic stenosis. JR4 was used for selective angiography of the right coronary artery system. This was pulled back across the aortic valve showing no significant ____ selective angiography of the right coronary artery system. This was exchanged out for a JL3.5 which was used for selective angiography of the left coronary artery system. JL3.5 was removed over a J wire. A radial band was placed over the arteriotomy site for hemostasis. The patient left the cath lab technologist cardiovascularly stable. FINDINGS: LEFT MAIN: Normal size vessel with no significant disease. It bifurcates into an LAD and circumflex. LEFT ANTERIOR DESCENDING: Normal size vessel but distally becomes overall small. It gives off one major diagonal which is overall larger than the LAD. It does have mild tortuosity but no significant disease. LEFT CIRCUMFLEX: Normal size vessel with on significant disease. It gives off 2 obtuse marginals with no significant disease. RIGHT CORONARY ARTERY: Normal size vessel with mild luminal irregularities. Distally it supplies a PDA and multiple PLVs with no significant disease. LEFT VENTRICULAR END DIASTOLIC PRESSURE: 6. IMPRESSIONS: 1. Atypical chest pain. 2. Abnormal stress test. 3. Shortness of breath. 4. Tobacco abuse. 5. Weight loss. RECOMMENDATIONS: 1. Mr. Grant presented with atypical chest pain and shortness of breath. On cardiac catheterization he was found to have mild coronary artery disease that most recommended continued medical management. 2. We will check a 2D echocardiogram to look at his overall left ventricular function, cardiac structure and possible valvopathies. 3. As he received contrast earlier as well as now (total 100 mL) we will start him on light fluids and check his creatinine again in the morning. 4. Overall, further needs workup for his weight loss, either inpatient or outpatient at the discretion of the hospital team. Thank you for allowing me to see Maureen Grant. If there are any questions, please do not hesitate to call. Eros More DO VGP/rt , 05:33 PM , 01:39 AM
[2017-12-08 04:00] VITALS: BP 120/61; PULSE 61; RESP 16; TEMP 98.2; O2SAT 98
[2017-12-08 04:05] VITALS: PULSE 53
[2017-12-08 05:28] LABS: BICARBONATE 27.7 MEQ/L (21.0-32.0); CALCIUM 8.6 MG/DL (8.5-10.1); CREATININE 0.8 MG/DL (0.60-1.30)
[2017-12-08 05:30] LABS: AUTOMATED NEUTROPHIL # 3.1 TH/MM3 (1.8-7.7); BASOPHIL % 0.8 % (0.0-2.0); EOSINOPHIL # 0.1 TH/MM3 (0-0.4); EOSINOPHIL % 1.8 % (0.0-4.0); HEMATOCRIT 45.7 % (39.0-51.0); HEMOGLOBIN 15.4 GM/DL (13.0-17.0); LYMPH % 33.2 % (9.0-44.0); LYMPHOCYTE # 1.8 TH/MM3 (1.0-4.8); MEAN CELL VOLUME 95.9 FL (80.0-100.0); MEAN CORPUSCULAR HEMOGLOBIN 32.3 PG (27.0-34.0); MEAN CORPUSCULAR HGB CONC 33.7 % (32.0-36.0); MEAN PLATELET VOLUME 9.1 FL (7.0-11.0); MONO % 7.7 % (0.0-8.0); MONOCYTE # 0.4 TH/MM3 (0-0.9); NEUT % 56.5 % (16.0-70.0); PLATELET COUNT 113 TH/MM3 (150-450); RED BLOOD COUNT 4.77 MIL/MM3 (4.50-5.90); RED CELL DISTRIBUTION WIDTH 13.8 % (11.6-17.2); WHITE BLOOD COUNT 5.4 TH/MM3 (4.0-11.0)
[2017-12-08 08:00] VITALS: BP 153/72; PULSE 45; RESP 20; TEMP 97.6; O2SAT 98
[2017-12-08] MEDS ORDERED: ASPIRIN 325 MG TAB PO SCH (09:00)
[2017-12-08] MEDS ORDERED: ASPIRIN 81 MG CHEW TAB CHEW SCH (09:00)
[2017-12-08] MEDS ORDERED: ASPI81 CHEW (09:11)
--- NOTE | 2017-12-08 09:11 | HHI.DS ---
Discharge Summary Admission Date Dec 07, 2017 at 09:51 Discharge Date: Dec 08, 2017 Admitting Diagnosis chest pain, rule out ACS (1) Chest pain ICD Code: R07.9 - Chest pain, unspecified Status: Acute Procedures 12/07/17 Left heart catheterization, coronary angiogram by Dr Long cardiology Brief History - From Admission 62-year-old male long-standing history of smoking presents to emergency room for further evaluation of chest pain and dyspnea. Onset 30 days. Reports month long symptoms including sore throat, productive cough white sputum, poor appetite, and lungs feel "tight." Denies fever, chills, or awakening from sleep dyspneic. Endorses dyspnea progressively becoming worse, with accompanying intermittent chest pain. Stating "I feel like I have an infection in my lungs." Location of chest discomfort substernal. Characterized as "ache. " Severity moderate. No radiation. Duration 30-45 seconds. No associated symptoms of nausea, vomiting, diaphoresis. No known precipitating or relieving factors. Also reporting 33 pound weight loss past 30 days. Denies notifying primary care provider of weight loss, chest pain, recent illness, or dyspnea. CBC/BMP: 12/08/17 0408 12/08/17 0408 Significant Findings Laboratory Tests Test 12/07/17 08:56 12/07/17 14:38 12/08/17 04:08 Platelet Count 131 TH/MM3 (150-450) 113 TH/MM3 (150-450) Estimat Glomerular Filtration Rate 69 ML/MIN (>89) Troponin I LESS THAN 0.02 NG/ML LESS THAN 0.02 NG/ML Imaging Last Impressions Chest X-Ray 12/07/17 0849 Signed Impressions: Service Date/Time: Thursday, December 07, 2017 09:11 - CONCLUSION: No acute cardiopulmonary abnormality is identified. Adam Kay MD Myocardial Perfusion Scan Nuc Med 12/07/17 0000 Signed Impressions: Service Date/Time: Thursday, December 07, 2017 12:27 - CONCLUSION: 1. Significant but patchy redistribution in the region of the septal wall. Findings could be indicative of RCA disease. 2. Excellent wall motion throughout with an estimated ejection fraction of 69%%. RISK CATEGORY: Intermediate (1-3%% Annual Mortality Rate) Yariel Bradley MD CT Angiography 12/07/17 0000 Signed Impressions: Service Date/Time: Thursday, December 07, 2017 10:39 - CONCLUSION: 1. No PE is identified. Additionally, no acute finding is identified to explain the chest pain and shortness of breath. 2. Mild aneurysmal ascending aorta measuring 4.1 cm. Adam Kay MD PE at Discharge GENERAL: Alert WN, WD, NAD, pleasant, male who appears older than stated age, in nad. CV: RRR, without murmur, rub, gallop, no JVD, S1-S2 no S3-S4. RESP: Clear lungs throughout bilateral, no crackles, wheeze, rhonchi, symmetrical chest rise, nonlabored, able to speak in full sentences ABD: Soft, NT, ND, no masses, positive bowel tones EXT: Pulses +24, no dependent edema MS: Normal tone 4 extremities, nontender, no obvious deformities, full range of motion NEURO: CN II through CN XII grossly intact, motor strength 5/5 PSYCH: A+O 3, pleasant affect, appropriate speech, mood, insight and judgment SKIN: Normal turgor, normal texture Pt update on day of discharge Patient feels much better. No chest pain overnight no shortness of breath, no nausea or vomiting. He is saturating well on room air. Feels comfortable to go home. Echo with normal ejection fraction. Hospital Course Atypical chest pain-admitted chest pain center. Begin ruling out ACS with 3 sets of EKGs and cardiac enzymes. Seen and evaluated by Dr. Chaparro Andujar. Proceed with chemical stress test after CT of chest. If unremarkable, plans to discharge home with follow-up with PCP. 12/07/17 s/p Left heart catheterization, coronary angiogram by Dr Long cardiology with Mild coronary artery disease. Recommends medical management. 2D ECHO with normal ejection fraction Tobacco use-counselled of tobacco cessation. Dyspnea-no acute findings on exam or chest xray. Obtain CT of chest due to reported 30 pound weight loss and long-standing history of smoking. Strongly encouraged him to quit smoking and to follow up with his PCP regarding weight lost. Verbalized understanding. Cleared by cardiology for discharge. Improved DC home in stable condition to follow up as OP with PCP and consultants Pt Condition on Discharge: Stable Discharge Disposition: Discharge Home Discharge Time: > 30 minutes Discharge Instructions DIET: Follow Instructions for: Heart Healthy Diet Activities you can perform: Regular-No Restrictions Follow up Referrals: Cardiology - 2 Weeks Cardiology PCP Follow-up - 2-3 Days PCP Follow-up New Medications: Aspirin (Tgt Aspirin) 81 Mg Chw 81 MG CHEW DAILY for Blood Clot Prevention, #30 EA Fariba Persaud MD Dec 08, 2017 09:11
--- NOTE | 2017-12-08 10:01 | MB ---
cc: Eros More DO DATE OF CONSULT: 12/07/2017 REASON FOR CONSULTATION: Chest pain, abnormal stress test. HISTORY OF PRESENT ILLNESS: Maureen Grant is a pleasant 62-year-old male who presented to [facility] Emergency Room on due to chest pain and shortness of breath. The patient states that he has noticed chest tightness, with an achy type feeling off and on over the past month. He has also been somewhat shortness of breath. Along with this, he has also had a sore throat, with a product cough and white sputum. Overall, he has had some tightness in his lungs when breathing. He denies fevers or chills. He has also had a 33 pound weight loss over the past 30 days, which he attributes to losing his recently and not eating as well, as well as having his teeth removed. PAST MEDICAL HISTORY: Tobacco abuse, otherwise denies. PAST SURGICAL HISTORY: 1. Tonsillectomy. 2. Teeth extraction. ALLERGIES: NO KNOWN DRUG ALLERGIES. MEDICATIONS: Denies. FAMILY HISTORY: Denies premature coronary artery disease or sudden cardiac within the family. SOCIAL HISTORY: The patient is a lifelong smoker, currently smoking 1/2 to 3/4 packs daily. He drinks a few beers every other day. Denies illicit drug abuse. REVIEW OF SYSTEMS: Fourteen systems were reviewed, including osteopathic. Pertinent positives and negatives above. Otherwise, negative. PHYSICAL EXAMINATION: VITAL SIGNS: Temperature 97.7, heart rate 53, blood pressure 119/62, respirations 18, pulse oximetry 97% on room air. GENERAL: The patient appears well, in no acute distress, alert, awake and oriented x 3. HEENT: Extraocular muscles intact. Mucous membranes moist. NECK: Supple. No JVD at 45 degrees. No carotid bruits heard bilaterally. Carotid upstroke is brisk in nature. CARDIOVASCULAR: Regular rate and rhythm. Positive first and second heart sounds, with no murmurs, gallops or rubs. PULMONARY: Lungs are clear to auscultation bilaterally. No wheezes, rales or rhonchi. ABDOMEN: Nontender, nondistended, no organomegaly noted. EXTREMITIES: Show no clubbing, cyanosis or edema. Femoral and distal pulses intact bilaterally. NEUROLOGIC: No focal deficits. SKIN: Warm, dry and intact. OSTEOPATHIC: No kyphosis, scoliosis, lordosis or paraspinal tender points. LABORATORY WORK: Hemoglobin 16.7, hematocrit 48.7, platelets 131, potassium 3.8, BUN 9, creatinine 1.09. Troponin negative x 2. ELECTROCARDIOGRAM (12/07/2017 AT 0832): Sinus rhythm. No acute ST, T wave changes. IMPRESSION: 1. Atypical chest pain. 2. Shortness of breath associated with exertion, but also noted with coughing. 3. Abnormal stress test. 4. Recent extensive weight loss. 5. Depression. 6. Tobacco abuse. RECOMMENDATIONS: 1. Mr. Grant appears to have presented with atypical chest pain and shortness of breath and underwent stress testing, which showed possible ischemic territories. Because of this, he will be recommended cardiac catheterization. 2. Risks, benefits and alternatives have been explained to him and consents as such. 3. He received 74 milliliters of contrast during a CT angio to rule out possible pulmonary embolus. I will keep this in mind during his cardiac catheterization to not give him an extensive amount of contrast. 4. We will plan on checking a 2D echocardiogram to look at his overall left ventricular function, cardiac structure and possible valvulopathies. 5. His weight loss may be due to his loss of his , depression and also removal of his teeth and having poor oral intake. I did discuss with him drug use, which he states he has none. I also discussed with him if he has any high risk sexual behaviors and concern for HIV, which he states he does not. I will leave further workup to the hospitalist, as well as the primary care physician. 6. It may be reasonable for him to undergo further cancer screenings in the outpatient setting. Any high risk sexual activity and he states he has none and no concern for HIV. Lastly, my concern would be for cancer. I will let the hospitalist and primary care physician do further workup for his weight loss. 7. Further recommendations will be made based on the hospital course. 8. I spoke to him for greater than 3 minutes about tobacco cessation. Thank you for allowing me to see Maureen Grant. If there are any questions, please do not hesitate to call. Eros More, DO LOBATO/ISAAC , 05:28 PM , 02:09 AM
--- NOTE | 2017-12-08 11:54 | ECHRPT ---
Indication: CP, SOB CONCLUSIONS The left ventricular systolic function is normal with an estimated ejection fraction in the range of 55-60%. The right ventricle is mildly dilated. Trace mitral valve regurgitation. Trace aortic valve regurgitation. There is trace tricuspid valve regurgitation. BP: 120 / 61 HR: Rhythm: Sinus MEASUREMENTS (Male / Female) Normal Values Technical Quality:Fair 2D ECHO LV Diastolic Diameter PLAX 4.6 cm 4.2 - 5.9 / 3.9 - 5.3 cm LV Systolic Diameter PLAX 3.4 cm IVS Diastolic Thickness 1.0 cm 0.6 - 1.0 / 0.6 - 0.9 cm LVPW Diastolic Thickness 1.0 cm 0.6 - 1.0 / 0.6 - 0.9 cm LV Relative Wall Thickness 0.4 RV Internal Dim ED PLAX 2.8 cm LVOT Diameter 1.9 cm Aortic Root Diameter 2.6 cm LA Systolic Diameter LX 3.0 cm 3.0 - 4.0 / 2.7 - 3.8 cm M-MODE AV Cusp Separation MM 2.0 cm DOPPLER AV Peak Velocity 120.0 cm/s AV Peak Gradient 5.8 mmHg AV Mean Gradient 3.0 mmHg AV Velocity Time Integral 25.8 cm LVOT Peak Velocity 67.7 cm/s LVOT Peak Gradient 1.8 mmHg LVOT Velocity Time Integral 16.9 cm AV Area Cont Eq vti 1.9 cm AV Area Cont Eq pk 1.6 cm Mitral E Point Velocity 75.5 cm/s Mitral A Point Velocity 66.6 cm/s Mitral E to A Ratio 1.1 LV E' Lateral Velocity 10.9 cm/s Mitral E to LV E' Lateral Ratio 6.9 LV E' Septal Velocity 7.6 cm/s Mitral E to LV E' Septal Ratio 9.9 TR Peak Velocity 265.0 cm/s TR Peak Gradient 28.1 mmHg Right Atrial Pressure 10.0 mmHg Pulmonary Artery Systolic Pressu 38.1 mmHg Right Ventricular Systolic Press 38.1 mmHg PV Peak Velocity 54.1 cm/s PV Peak Gradient 1.2 mmHg FINDINGS LEFT VENTRICLE Normal left ventricular size. Wall thickness is normal. The left ventricular systolic function is normal with an estimated ejection fraction in the range of 55-60%. No regional wall motion abnormalities are present. RIGHT VENTRICLE The right ventricle is mildly dilated. The right ventricular systoilc function is normal. LEFT ATRIUM The left atrial size is mildly dilated. RIGHT ATRIUM The right atrial size is moderately dilated. ATRIAL SEPTUM No atrial level shunt is demonstrated by color flow Doppler interrogation. AORTA The aortic root and proximal ascending aorta are normal in size on limited imaging. MITRAL VALVE Structurally normal mitral valve. No mitral valve stenosis. Trace mitral valve regurgitation. AORTIC VALVE Aortic valve sclerosis is present. Trace aortic valve regurgitation. No aortic valve stenosis. TRICUSPID VALVE Structurally normal tricuspid valve. No tricuspid valve stenosis. There is trace tricuspid valve regurgitation. The estimated pulmonary arterial pressure is 38.1 mmHg. PULMONARY VALVE No pulmonary valve regurgitation or stenosis. VESSELS The inferior vena cava is normal in size. PERICARDIUM No pericardial effusion. Eros More DO (Electronically Signed) Final Date:08 December 2017 11:53
[2017-12-08 12:05] VITALS: BP 134/68; PULSE 52; RESP 20; TEMP 97.6; O2SAT 96
[2017-12-08 12:12] VITALS: O2SAT 96
--- NOTE | 2017-12-08 12:24 | PD.CARD.PN ---
Subjective Subjective Remarks Doing well No chest pain/SOB Objective Medications Current Medications Medications (Trade) Dose Ordered Sig/Antonio Route Start Time Stop Time Status Last Admin (NS Flush) 2 ml UNSCH PRN IVF 12/07/17 09:00 (Tylenol) 500 mg Q4H PRN PO 12/07/17 10:00 (Zofran Inj) 4 mg Q6H PRN IV PUSH 12/07/17 10:00 (Nitrostat Sl) 0.4 mg Q5M PRN SL 12/07/17 10:00 (Aspirin Chew) 81 mg DAILY CHEW 12/08/17 09:00 12/08/17 07:50 Vital Signs / I&O Vital Signs Date Time Temp Pulse Resp B/P (MAP) Pulse Ox O2 Delivery O2 Flow Rate FiO2 12/08/17 12:12 96 21 12/08/17 12:05 97.6 52 20 134/68 (90) 96 12/08/17 08:00 97.6 45 20 153/72 (99) 98 12/08/17 04:05 53 12/08/17 04:00 98.2 61 16 120/61 (80) 98 12/08/17 04:00 Room Air 12/08/17 00:00 98.1 57 16 152/81 (104) 97 12/08/17 00:00 Room Air 12/07/17 23:51 49 12/07/17 21:37 58 12/07/17 20:00 98.6 58 18 140/62 (88) 98 12/07/17 17:22 95 Room Air 12/07/17 15:05 97.7 53 18 119/62 (81) 97 I/O 12/07/17 12/07/17 12/07/17 12/08/17 12/08/17 12/08/17 07:00 15:00 23:00 07:00 15:00 23:00 Intake Total 703 ml 480 ml Output Total 350 ml Balance 703 ml 130 ml Intake Oral 480 ml IV Total 703 ml Output Urine Total 350 ml # Voids 1 # Bowel Movements 1 Physical Exam GENERAL: NAD, AAOx3 SKIN: Warm and dry. HEAD: Atraumatic. Normocephalic. EYES: Pupils equal and round. No scleral icterus. No injection or drainage. ENT: No nasal bleeding or discharge. Mucous membranes pink and moist. NECK: Trachea midline. No JVD. CARDIOVASCULAR: Regular rate and rhythm. RESPIRATORY: No accessory muscle use. Clear to auscultation. Breath sounds equal bilaterally. GASTROINTESTINAL: Abdomen soft, non-tender, nondistended. Hepatic and splenic margins not palpable. MUSCULOSKELETAL: Extremities without clubbing, cyanosis, or edema. No obvious deformities. Right radial no hematoma, neurovascularly stable distally NEUROLOGICAL: Awake and alert. No obvious cranial nerve deficits. Motor grossly within normal limits. Five out of 5 muscle strength in the arms and legs. Normal speech. PSYCHIATRIC: Appropriate mood and affect; insight and judgment normal. Laboratory Laboratory Tests Test 12/07/17 14:38 12/08/17 04:08 Total Creatine Kinase 112 U/L Creatine Kinase MB 1.0 NG/ML Troponin I LESS THAN 0.02 NG/ML White Blood Count 5.4 TH/MM3 Red Blood Count 4.77 MIL/MM3 Hemoglobin 15.4 GM/DL Hematocrit 45.7 % Mean Corpuscular Volume 95.9 FL Mean Corpuscular Hemoglobin 32.3 PG Mean Corpuscular Hemoglobin Concent 33.7 % Red Cell Distribution Width 13.8 % Platelet Count 113 TH/MM3 Mean Platelet Volume 9.1 FL Neutrophils (%) (Auto) 56.5 % Lymphocytes (%) (Auto) 33.2 % Monocytes (%) (Auto) 7.7 % Eosinophils (%) (Auto) 1.8 % Basophils (%) (Auto) 0.8 % Neutrophils # (Auto) 3.1 TH/MM3 Lymphocytes # (Auto) 1.8 TH/MM3 Monocytes # (Auto) 0.4 TH/MM3 Eosinophils # (Auto) 0.1 TH/MM3 Basophils # (Auto) 0.0 TH/MM3 CBC Comment DIFF FINAL Differential Comment Blood Urea Nitrogen 10 MG/DL Creatinine 0.80 MG/DL Random Glucose 82 MG/DL Calcium Level 8.6 MG/DL Sodium Level 141 MEQ/L Potassium Level 3.7 MEQ/L Chloride Level 107 MEQ/L Carbon Dioxide Level 27.7 MEQ/L Anion Gap 6 MEQ/L Estimat Glomerular Filtration Rate 98 ML/MIN Assessment and Plan Problem List: (1) SOB (shortness of breath) ICD Codes: R06.02 - Shortness of breath (2) CAD (coronary artery disease) ICD Codes: I25.10 - Atherosclerotic heart disease of [place] coronary artery without angina pectoris (3) Chest pain ICD Codes: R07.9 - Chest pain, unspecified Status: Acute Assessment and Plan 1) Atypical chest pain Mild CAD by cath 2) EF 55-60%, trace AR/MR/TR RV mildly dilated, PE ruled out 3) Weight loss Possible secondary to loss of his , depression and removal of his teeth with poor oral intake Follow up with PCP for further work up 4) Tobacco cessation 5) No further cardiovascular workup, cardiovascularly stable for discharge Problem Qualifiers (1) Chest pain: Qualified Codes: R07.9 - Chest pain, unspecified Eros More DO Dec 08, 2017 12:24
--- NOTE | 2017-12-08 22:59 | EKG ---
Date Performed: 12/07/2017 Time Performed: 08:32:32 PTAGE: 62 years EKG: Sinus rhythm NORMAL ECG NO PREVIOUS TRACING DOCTOR: David Bernard Interpretating Date/Time 12/08/2017 22:57:51
== END 2017-12-08 12:23 | disposition home or self-care (01) ==
LOC: NEPE 08:10 → NEDA 09:51 → NEPFCDU 11:03 → HCIS 16:27 → N04A 20:07
PROVIDERS: ADMIT Hospitalist; ATTEND Hospitalist
DX: R07.89 Other chest pain (principal); R06.02 Shortness of breath; J02.9 Acute pharyngitis, unspecified; R05 Cough; R63.0 Anorexia; I25.119 Atherosclerotic heart disease of native coronary artery with unspecified angina pectoris; I70.0 Atherosclerosis of aorta; I71.2 Thoracic aortic aneurysm, without rupture; R94.39 Abnormal result of other cardiovascular function study; K21.9 Gastro-esophageal reflux disease without esophagitis; F32.9 Major depressive disorder, single episode, unspecified; F17.200 Nicotine dependence, unspecified, uncomplicated
CPT/HCPCS: 71046; 71275; 78452; 80048; 82550; 82552; 83735; 84484; 85025; 85610; 93005; 93017; 93306; 93458; 96360; 99285; A9502; C1769; C1893; G0378; J1644; J2250; J2785; J3010; J7030; Q9967